=== PATIENT | male | born 1975 | race Caucasian/White ===

== ENCOUNTER 2019-06-13 14:41 | Emergency (ER) | payer OTHER ==
[~2019-06-13] VITALS: Ht 182.9 cm; Wt 70.3 kg
[~2019-06-13 14:41] MED LIST: ALLO100 PO; ALLOPURINOL; AMOX875 PO; COLCHICINE0.6 MG PO; COLCRYS0.6 MG PO; GOUT MED; HYDACE5 PO; HYDACE5325 PO; HYDR1TAB94 PO; INDO50 PO; Indomethacin50 MG PO; LAMO50 PO; MAGCHL64ER PO; NAPR500 PO; Norco 5-325 Ta1 EACH PO; PARO20 PO; Percocet 5-3251 EACH PO; STOOL SOFTENER; VITAMIN B-125000 MCG SL
[2019-06-13] MEDS ORDERED: DICL75ER PO (15:12)
[2019-06-13] MEDS ORDERED: COLCHICINE0.6 MG PO (15:12)
== END 2019-06-13 15:33 | disposition home or self-care (01) ==
LOC: ER 14:41
DX: M10.9 Gout, unspecified (principal); F17.220 Nicotine dependence, chewing tobacco, uncomplicated; Z91.048 Other nonmedicinal substance allergy status; Z79.899 Other long term (current) drug therapy
CPT/HCPCS: 96372; 99283-25; J1885; J2930

== ENCOUNTER 2021-05-28 18:27 | Emergency (ER) | payer OTHER ==
[~2021-05-28] VITALS: Ht 182.9 cm; Wt 70.3 kg
[~2021-05-28 18:27] MED LIST changes: +DICL75ER PO
[2021-05-28] MEDS ORDERED: COLCRYS0.6 MG PO (18:51)
== END 2021-05-28 19:08 | disposition home or self-care (01) ==
LOC: ER 18:27
DX: M10.9 Gout, unspecified (principal); F17.220 Nicotine dependence, chewing tobacco, uncomplicated; Z91.048 Other nonmedicinal substance allergy status; Z79.899 Other long term (current) drug therapy; Z85.89 Personal history of malignant neoplasm of other organs and systems
CPT/HCPCS: 96372-59; 99282-25; J1885; J3301

== ENCOUNTER 2021-11-10 17:41 | Emergency (ER) | payer OTHER ==
[~2021-11-10] VITALS: Ht 182.9 cm; Wt 69.0 kg
== END 2021-11-10 18:59 | disposition left against medical advice (07) ==
LOC: ER 17:41
DX: M10.9 Gout, unspecified (principal); Z53.21 Procedure and treatment not carried out due to patient leaving prior to being seen by health care provider
CPT/HCPCS: 99282

== ENCOUNTER 2021-12-13 03:46 | Emergency (ER) | payer OTHER ==
[~2021-12-13] VITALS: Ht 182.9 cm; Wt 68.0 kg
== END 2021-12-13 06:18 | disposition home or self-care (01) ==
LOC: ER 03:46
DX: M10.9 Gout, unspecified (principal); F17.220 Nicotine dependence, chewing tobacco, uncomplicated
CPT/HCPCS: 96372; 99283-25; J1885

== ENCOUNTER 2022-10-07 03:40 | Emergency (ER) | payer OTHER ==
[~2022-10-07] VITALS: Ht 182.9 cm; Wt 68.0 kg
== END 2022-10-07 06:28 | disposition home or self-care (01) ==
LOC: ER 03:40
DX: M10.9 Gout, unspecified (principal); M79.641 Pain in right hand; M79.642 Pain in left hand; Z79.899 Other long term (current) drug therapy; F17.220 Nicotine dependence, chewing tobacco, uncomplicated
CPT/HCPCS: J1885; J7512

== ENCOUNTER 2022-10-28 19:22 | Emergency (ER) | payer OTHER ==
[~2022-10-28] VITALS: Ht 182.9 cm; Wt 69.0 kg
[2022-10-28] MEDS ORDERED: Prednisone20 MG PO (19:38)
== END 2022-10-28 19:52 | disposition home or self-care (01) ==
LOC: ER 19:22
DX: M10.9 Gout, unspecified (principal); F17.220 Nicotine dependence, chewing tobacco, uncomplicated; Z91.048 Other nonmedicinal substance allergy status; Z79.899 Other long term (current) drug therapy
CPT/HCPCS: J1885; J7512

== ENCOUNTER 2024-04-10 10:37 | Emergency (ER) | payer OTHER ==
[~2024-04-10] VITALS: Ht 182.9 cm; Wt 65.8 kg
[~2024-04-10 10:37] MED LIST changes: +Prednisone20 MG PO
[2024-04-10 10:47] VITALS: BP 138/110
[2024-04-10] MEDS ORDERED: Ketorolac Tromethamine 30mg Vial IM ONE (13:05)
[2024-04-10] MEDS ORDERED: PredniSONE 20 MG Tab PO ONE (13:05)
[2024-04-10] MEDS ORDERED: IBUP800 PO (13:09)
[2024-04-10] MEDS ORDERED: PRED20 PO (13:09)
== END 2024-04-10 13:41 | disposition home or self-care (01) ==
LOC: ER 10:37
DX: M10.9 Gout, unspecified (principal); F17.220 Nicotine dependence, chewing tobacco, uncomplicated; Z79.52 Long term (current) use of systemic steroids; Z79.899 Other long term (current) drug therapy; Z91.048 Other nonmedicinal substance allergy status
CPT/HCPCS: 96372; 99283-25; J1885; J7512

== ENCOUNTER 2024-07-02 12:24 | Emergency (ER) | payer OTHER ==
[~2024-07-02] VITALS: Ht 180.3 cm; Wt 70.3 kg
[~2024-07-02 12:24] MED LIST changes: +IBUP800 PO; +PRED20 PO
[2024-07-02 12:56] VITALS: BP 123/90
[2024-07-02] MEDS ORDERED: Ketorolac Tromethamine 30mg Vial IM ONE (14:10)
[2024-07-02] MEDS ORDERED: MethylPREDNISolone Sod Succ 125 MG Vial IM ONE (14:10)
[2024-07-02] MEDS ORDERED: Naprosyn500 MG PO (14:11)
[2024-07-02] MEDS ORDERED: PRED20 PO (14:11)
== END 2024-07-02 14:29 | disposition home or self-care (01) ==
LOC: ER 12:24
DX: M10.9 Gout, unspecified (principal); F17.220 Nicotine dependence, chewing tobacco, uncomplicated; Z79.52 Long term (current) use of systemic steroids; Z79.899 Other long term (current) drug therapy; Z91.048 Other nonmedicinal substance allergy status
CPT/HCPCS: 96372-59; 96374; 99283-25; J1885; J2919

== ENCOUNTER 2024-09-16 19:50 | Emergency (ER) | payer OTHER ==
[~2024-09-16] VITALS: Ht 180.3 cm; Wt 69.0 kg
[~2024-09-16 19:50] MED LIST changes: +Naprosyn500 MG PO
[2024-09-16 19:54] VITALS: BP 129/87
[2024-09-16] MEDS ORDERED: PredniSONE 20 MG Tab PO ONE (20:15)
[2024-09-16] MEDS ORDERED: Ketorolac Tromethamine 30mg Vial IM ONE (20:20)
[2024-09-16] MEDS ORDERED: Naprosyn500 MG PO (20:22)
== END 2024-09-16 20:37 | disposition home or self-care (01) ==
LOC: ER 19:50
DX: M10.9 Gout, unspecified (principal); F17.220 Nicotine dependence, chewing tobacco, uncomplicated; Z79.52 Long term (current) use of systemic steroids; Z79.899 Other long term (current) drug therapy; Z91.018 Allergy to other foods
CPT/HCPCS: 96372; 99282-25; J1885; J7512

== ENCOUNTER 2024-12-05 10:39 | Emergency (ER) | payer OTHER ==
[~2024-12-05] VITALS: Ht 182.9 cm; Wt 68.0 kg
[2024-12-05 11:13] VITALS: BP 130/76
[2024-12-05] MEDS ORDERED: PredniSONE 20 MG Tab PO ONE (12:10)
[2024-12-05] MEDS ORDERED: Ketorolac Tromethamine 30mg Vial IM ONE (12:10)
[2024-12-05] MEDS ORDERED: NAPR500ERA PO (12:13)
== END 2024-12-05 12:47 | disposition home or self-care (01) ==
LOC: ER 10:39
DX: M10.9 Gout, unspecified (principal); F17.220 Nicotine dependence, chewing tobacco, uncomplicated; Z79.52 Long term (current) use of systemic steroids; Z79.899 Other long term (current) drug therapy; Z79.1 Long term (current) use of non-steroidal anti-inflammatories (NSAID); Z91.048 Other nonmedicinal substance allergy status
CPT/HCPCS: 99283-25; J1885; J7512

== ENCOUNTER 2025-01-28 01:48 | Emergency (ER) | payer OTHER ==
[~2025-01-28] VITALS: Ht 182.9 cm; Wt 65.8 kg
[~2025-01-28 01:48] MED LIST changes: +NAPR500ERA PO
[2025-01-28 01:53] VITALS: BP 111/83
[2025-01-28] MEDS ORDERED: MethylPREDNISolone Sod Succ 125 MG Vial IV ONE (04:05)
[2025-01-28] MEDS ORDERED: PRED20 PO (04:05)
[2025-01-28] MEDS ORDERED: Ketorolac Tromethamine 15mg Vial IV ONE (04:05)
[2025-01-28] MEDS ORDERED: NAPR500 PO (04:05)
[2025-01-28] MEDS ORDERED: PredniSONE 20 MG Tab PO ONE (04:25)
[2025-01-28] MEDS ORDERED: Ketorolac Tromethamine 30mg Vial IM ONE (04:25)
== END 2025-01-28 04:46 | disposition home or self-care (01) ==
LOC: ER 01:48
DX: M79.672 Pain in left foot (principal); G89.29 Other chronic pain; M10.9 Gout, unspecified; F17.220 Nicotine dependence, chewing tobacco, uncomplicated; Z91.048 Other nonmedicinal substance allergy status; Z79.899 Other long term (current) drug therapy
CPT/HCPCS: 96372; 99283-25; J1885; J7512

== ENCOUNTER 2025-02-23 13:05 | Emergency (ER) | payer OTHER ==
[~2025-02-23] VITALS: Ht 182.9 cm; Wt 69.4 kg
[2025-02-23 14:04] VITALS: BP 131/102
[2025-02-23] MEDS ORDERED: IBUP800 PO (14:07)
[2025-02-23] MEDS ORDERED: Prednisone20 MG PO (14:07)
== END 2025-02-23 14:11 | disposition home or self-care (01) ==
LOC: ER 13:05
DX: M10.9 Gout, unspecified (principal); F17.220 Nicotine dependence, chewing tobacco, uncomplicated; Z91.048 Other nonmedicinal substance allergy status; Z79.899 Other long term (current) drug therapy
CPT/HCPCS: 99282

== ENCOUNTER 2025-07-04 11:51 | Day surgery (SDC) | payer OTHER ==
[2025-07-04] VITALS (30 sets, daily range): BP systolic 105–121; BP diastolic 73–91
[~2025-07-04] VITALS: Ht 177 cm; Wt 74.1 kg
--- NOTE | 2025-07-04 12:35 | NUR ---
Ambulatory in Day Surgery Patient States Post-Procedure ride home has been arranged. Lungs clear T/O to Auscultation.Patient states colon prep results clear. History, Chart, Medications and Allergies reviewed before start of procedure.
--- NOTE | 2025-07-04 12:59 | NUR ---
07/04/25 1259 Shamir Davis CONFIRMED AND REVIEWED H&P, MEDCICATIONS, ALLERGIES, MEDICAL HISTORY, RESPIRATORY HISTORY, VITAL SIGNS, 3-LEAD EKG, CONSENTS, AND PHYSICIAN ORDERS. PATIENT CONFIRMS NPO STATUS AND AGREES WITH SCHEDULED PROCEDURE. MONITOR INTACT WITH CONTINUOUS PULSE OXIMETRY, CAPNOGRAPHY, 3-LEAD EKG, INTERMITTENT BP. SUPPLEMENTAL O2 TO BE TITRATED THROUGHOUT PROCEDURE TO MAINTAIN O2 SATURATION ABOVE 90%. PATIENT DETERMINED TO BE ASA APPROPRIATE FOR PROPOFOL SEDATION PRIOR TO START OF PROCEDURE BY DR. ESPINOZA
--- NOTE | 2025-07-04 14:14 | NUR ---
Discharge instructions reviewed with patient. Patient verbalizes understanding. Copy given to patient to take home. Patient States Post-Procedure ride home has been arranged. Discharged via wheelchair to private car for ride home.
== END 2025-07-04 23:00 | disposition home or self-care (01) ==
LOC: ORSCMMR 11:51 → ORD 13:15 → ORSCMMR 23:00
PROVIDERS: Family Medicine
PROC: 0DDP8ZX Extraction of Rectum, Via Natural or Artificial Opening Endoscopic, Diagnostic (ICD-10-PCS; principal; 2025-07-04 13:15)
PROC: 0DDN8ZX Extraction of Sigmoid Colon, Via Natural or Artificial Opening Endoscopic, Diagnostic (ICD-10-PCS; principal; 2025-07-04 13:15)
PROC: 0DDK8ZX Extraction of Ascending Colon, Via Natural or Artificial Opening Endoscopic, Diagnostic (ICD-10-PCS; principal; 2025-07-04 13:15)
DX: Z12.11 Encounter for screening for malignant neoplasm of colon (principal); D12.2 Benign neoplasm of ascending colon; D12.8 Benign neoplasm of rectum; K63.5 Polyp of colon; Z79.899 Other long term (current) drug therapy; F41.9 Anxiety disorder, unspecified
CPT/HCPCS: 88305; J2704; J7120

== ENCOUNTER 2025-07-21 23:23 | Emergency (ER) | payer OTHER ==
[~2025-07-21] VITALS: Ht 182.9 cm; Wt 75.8 kg
[2025-07-21] MEDS ORDERED: Dexamethasone Sod Phos 10 MG/ML 1ML VIAL PO ONE (23:55)
[2025-07-21] MEDS ORDERED: Ketorolac Tromethamine 30mg Vial IM ONE (23:55)
[2025-07-21] MEDS ORDERED: IBUP800 PO (23:59)
[2025-07-21] MEDS ORDERED: PRED20 PO (23:59)
[2025-07-22 00:27] VITALS: BP 120/84
== END 2025-07-22 00:32 | disposition home or self-care (01) ==
LOC: ER 23:23
DX: M10.9 Gout, unspecified (principal); F17.220 Nicotine dependence, chewing tobacco, uncomplicated; Z91.048 Other nonmedicinal substance allergy status; Z79.899 Other long term (current) drug therapy
CPT/HCPCS: 96372; 99283; J1100; J1885